=== PATIENT | male | born 1960 | race African-American/Black ===

== ENCOUNTER 2019-03-15 19:22 | Emergency (ER) | payer SELFPAY ==
--- NOTE | 2019-03-15 19:56 | RAD ---
Chest one view HISTORY: Dyspnea. COMPARISON: 03/11/2014. FINDINGS: Cardiac silhouette is magnified and slightly enlarged. Pulmonary vasculature is engorged an d accentuated by shallow inspiration. Mediastinum is midline. No lobar consolidation or evidence of pneumothorax. IMPRESSION: Pulmonary vascular congestion with cardiomegaly. Consider CHF.
--- NOTE | 2019-03-15 20:07 | RAD ---
Right ankle 3 views HISTORY: Right ankle injury. FINDINGS: Ankle mortise and talar dome are intact. Moderate osteophytosis. Degenerative changes of th e hindfoot also evident. Nonspecific cortical thickening along the medial aspect of the distal tibia. No acute fracture or dislocation evident. Tiny irregular shaped calcific density projects over the lateral soft tissues superficial to the late ral malleolus. IMPRESSION: Degenerative changes right ankle. No acute osseous abnormalities are demonstrated.
--- NOTE | 2019-03-15 20:09 | RAD ---
Left ankle 3 views HISTORY: Ankle pain. FINDINGS: Ankle mortise and talar dome are intact. Well-corticated irregular shaped 1.0 cm ossificati on adjacent to the medial malleolus may represent an old ununited ossific avulsion, secondary ossification center, or dystrophic calcification, possibly related to prior injury. Mild degenerative changes of the ankle and hindfoot. No acute fracture or dislocation evident. Calcification over the arterial structures. IMPRESSION: Mild osteoarthritic changes and other chronic-type findings. Atherosclerosis.
[2019-03-15] MEDS ORDERED: Furosemide 40 MG/4 ML VIAL ONE (20:30)
[2019-03-15 20:34] LABS: ALT (SGPT) 13 U/L (8-55); AST (SGOT) 16 U/L (5-34); Albumin 3.2 g/dL (3.5-5.0); Alkaline Phosphatase 207 U/L (40-110); Anion Gap 17 mmol/L (10-20); BUN (Urea Nitrogen) 11 mg/dL (8.4-25.7); Bilirubin, Total 0.5 mg/dL (0.2-1.2); Calc. Creatinine Clearance 0 mL/min (70-130); Calcium 9.1 mg/dL (7.8-10.44); Carbon Dioxide 27 mmol/L (22-29); Chloride 97 mmol/L (98-107); Estimated GFR-MDRD 61; Globulin 4.5 g/dL (2.4-3.5); Glucose 234 mg/dL (70-105); Potassium 3.9 mmol/L (3.5-5.1); Protein, Total 7.7 g/dL (6.0-8.3); Sodium 137 mmol/L (136-145)
[2019-03-15] MEDS ORDERED: Aspirin 325 MG TAB ONE (20:43)
[2019-03-15] MEDS ORDERED: Labetalol HCl 100 MG/20 ML VIAL ONE (20:43)
[2019-03-15] MEDS ORDERED: Aspirin Chewable 81 MG TAB ONE (20:45)
[2019-03-15 20:50] LABS: #Basophils 0.2 thou/uL (0.0-0.2); #Eosinphils 0.2 thou/uL (0.0-0.7); #Lymphocytes 2.2 thou/uL (1.20-3.40); #Monocytes 0.8 thou/uL (0.11-0.59); #Neutrophils 7.2 thou/uL (1.40-6.50); %Basophils 1.6 % (0.0-1.0); %Eosinophils 2.1 % (0.0-10.0); %Lymphocytes 20.8 % (21.0-51.0); %Monocytes 7.7 % (0.0-10.0); %Neutrophils 67.9 % (42.0-75.0); Hypochromia SLIGHT = 6-15 cells (100X) (0-5/hpf); MDiff Complete? YES; Mean Corpuscular HGB CONC 29.4 g/dL (32.0-36.0); Mean Corpuscular Hemoglobin 24.9 pg (27.0-31.0); Mean Corpuscular Volume 84.7 fL (78.0-98.0); Mean Platelet Volume 6.6 fL (7.4-10.4); Platelet Count 370 thou/uL (130-400); RBC Distribution Width 12.8 % (11.5-14.5); Red Blood Cell (RBC) Count 4.43 mill/uL (4.70-6.10); White Blood Cell (WBC) Count 10.5 thou/uL (4.8-10.8)
[2019-03-15 21:13] LABS: Bilirubin Negative (Negative); Blood, Urine Trace (Negative); Clarity Clear (Clear); Glucose, Urine (Dipstick) 250 mg/dL (Negative); Leukocyte Negative (Negative); Nitrite Negative (Negative); Protein, Urine (Dipstick) 100 mg/dL (Neg-Trace); Urobilinogen > or = 8.0 mg/dL (Less than 2)
[2019-03-15 21:22] LABS: Amphetamine Not Detected (NotDetected); Barbiturates Screen Not Detected (NotDetected); Benzodiazepine Screen Not Detected (NotDetected); Cocaine Metabolite Screen Not Detected (NotDetected); Medtox Control Line Valid? VALID (VALID); Methadone Not Detected (NotDetected); Methamphetamine Not Detected (NotDetected); Opiate Screen Not Detected (NotDetected); Oxycodone Screen Not Detected (NotDetected); Phencyclidine (PCP) Not Detected (NotDetected); THC/Cannabinoid Screen Not Detected (NotDetected); Tricyclic Screen Not Detected (NotDetected)
[2019-03-15 21:25] LABS: Bacteria/HPF None Seen HPF (None Seen); RBC/HPF 0-3 HPF (0-3); WBC/HPF 0-3 HPF (0-3)
[2019-03-15] MEDS ORDERED: Sodium Chloride 0.9% 100 ML ONE (21:39)
[2019-03-15] MEDS ORDERED: Meropenem 1 GM VIAL ONE (21:39)
[2019-03-15] MEDS ORDERED: Lisinopril 10 MG TAB ONE (21:39)
[2019-03-15] MEDS ORDERED: Sodium Chloride 0.9% 500 ML ONE (22:23)
== END 2019-03-15 22:32 | disposition short-term general hospital (02) ==
LOC: MADERS 19:22
DX: I11.0 Hypertensive heart disease with heart failure (principal); I50.9 Heart failure, unspecified; E11.621 Type 2 diabetes mellitus with foot ulcer; L97.329 Non-pressure chronic ulcer of left ankle with unspecified severity; L97.319 Non-pressure chronic ulcer of right ankle with unspecified severity; E78.5 Hyperlipidemia, unspecified; E78.00 Pure hypercholesterolemia, unspecified; I10 Essential (primary) hypertension; F17.220 Nicotine dependence, chewing tobacco, uncomplicated
CPT/HCPCS: 36416; 71045; 80053; 80306; 81003; 81015; 83880; 84443; 84484; 85025; 86140; 87070; 87077; 87186; 87205; 93005; 94760; 96365; 96375; 96376; J1940; J2185; J3370; J3490; J7050